=== PATIENT | male | born 1955 | race Caucasian/White ===

== ENCOUNTER 2017-01-01 20:47 | Emergency (ER) | payer MEDICARE, OTHER ==
[2017-01-01] MEDS ORDERED: SODIUM CHLORIDE 0.9% 1,000 ML IV STA (21:12)
[2017-01-01] MEDS ORDERED: SODIUM CHLORIDE 0.9% 1,000 ML with MVI, ADULT NO.4 WITH VIT K 10 ML, THIAMINE 100 MG, F... IV ONE ×4 (21:12)
[2017-01-01] MEDS ORDERED: LORazepam 2 MG/ML SYRINGE IV STA (21:13)
--- NOTE | 2017-01-01 21:17 | ED ---
Alcohol HPI - General Source: RN notes reviewed - History of Present Illness MD Complaint: alcohol intoxication Last Drink: unknown Previous Visits for Alcohol Intoxication?: Yes Recent Trauma: No Associated Symptoms: denies other symptoms Treatments Prior to Arrival: none Chronic Alcohol Use: Yes <Samantha Whittington - Last Filed: 01/02/17 03:07> <Rolf Rasheed - Last Filed: 01/02/17 04:42> - General Stated Complaint: ETOH Time Seen by Provider: 01/01/17 21:03 - History of Present Illness Initial Comments: This young male presents for alcohol intoxication. Patient has no complaints at this time. Patient does have an altered mental status on presentation due to alcohol. (Samantha Whittington) - Related Data Home Medications Medication Instructions Recorded Confirmed Albuterol Sulfate [Ventolin HFA] 2 puff INHALATION RT-Q6H PRN 05/14/16 05/28/16 Famotidine 20 mg PO BID 05/14/16 05/28/16 Haloperidol [Haldol] 5 mg PO TID 05/14/16 05/28/16 Hydrocodone/Acetaminophen [[place] 1 tab PO Q8H PRN 05/14/16 05/28/16 5-325] Lisinopril 40 mg PO DAILY 05/14/16 05/28/16 [place] Carbonate 300 mg PO BID 05/14/16 05/28/16 Paliperidone IM [Invega Sustenna] 234 mg IM Q30D 05/14/16 05/28/16 Tamsulosin [Flomax] 0.4 mg PO DAILY 05/14/16 05/28/16 amLODIPine [Norvasc] 10 mg PO DAILY 05/14/16 05/28/16 Diazepam [Valium] 5 mg PO TID PRN 05/28/16 05/28/16 Disulfiram 250 mg PO DAILY PRN 05/28/16 05/28/16 FLUoxetine HCL [PROzac] 20 mg PO BID 05/28/16 05/28/16 Previous Rx's Medication Instructions Recorded Nicotine 14Mg/24Hr Patch [Habitrol] 1 patch TRANSDERM DAILY #14 patch 05/15/16 Multivitamins, Thera [Multivitamin 1 each PO DAILY@1200 tab 05/30/16 (formulary)] Thiamine [Vitamin B-1] 100 mg PO BID@1200,1700 tab 05/30/16 Allergies Allergy/AdvReac Type Severity Reaction Status Date / Time Penicillins Allergy Severe Rash/Hives Verified 01/01/17 21:18 Review of Systems ROS Other: All systems not noted in ROS Statement are negative. <Samantha Whittington - Last Filed: 01/02/17 03:07> ROS Other: All systems not noted in ROS Statement are negative. <Rolf Rasheed - Last Filed: 01/02/17 04:42> ROS Statement: Those systems with pertinent positive or pertinent negative responses have been documented in the HPI. Past Medical History Past Medical History: Cancer, Hypertension, Liver Disease, Seizure Disorder Additional Past Medical History / Comment(s): opiate overdose and subdural hematoma. Other HX: Etoh addiction, cirrhosis, hepatic encephalopathy, HEAD INJURIES , Hepatitis C, 1-5-15 RIMMA BIMALLEOLAR FX D/T FALL, HAD SKIN CA ON NOSE History of Any Multi-Drug Resistant Organisms: None Reported Past Surgical History: Orthopedic Surgery, Tonsillectomy Additional Past Surgical History / Comment(s): Open left shoulder rotator cuff surgery, SKIN CA NOSE HAD SKIN GRAFT DONE, colonoscopy and EGD. Past Anesthesia/Blood Transfusion Reactions: No Reported Reaction Additional Past Anesthesia/Blood Transfusion Reaction / Comment(s): Pt has never recieved blood. Past Psychological History: ADD/ADHD, Anxiety, Bipolar, Depression Additional Psychological History / Comment(s): Previous suicide attempts with mental health inpatient admissions. Patient is open with [facility] and sees a physician there per pt. Pt is followed by ACT team who dispenses his medication. Pt uses a cane to ambulate. He does not have a license. He currently has a homeless friend staying with him in his renatl home. Smoking Status: Current every day smoker Past Alcohol Use History: Daily Additional Past Alcohol Use History / Comment(s): Pt used to DRINK A PINT OF VODTKA DAILY but quit drinking 9 months ago, and quit smoking cigarettes 6 months ago. He is working out daily and has been eating healthy. Past Drug Use History: None Reported Additional Drug Use History / Comment(s): Pt states he smoked marijuana as a 16 yr old. None since. - Past Family History Mother Family Medical History: Hypertension Father Family Medical History: Musculoskeletal Disorder <Samantha Whittington - Last Filed: 01/02/17 03:07> General Exam General appearance: alert, appears intoxicated Head exam: Present: atraumatic, normocephalic, normal inspection Eye exam: Present: normal appearance, EOMI. Absent: scleral icterus, conjunctival injection ENT exam: Present: normal exam, mucous membranes moist Neck exam: Present: normal inspection. Absent: tenderness, meningismus, lymphadenopathy Respiratory exam: Present: normal lung sounds bilaterally. Absent: respiratory distress, wheezes, rales, rhonchi, stridor Cardiovascular Exam: Present: regular rate, normal rhythm, normal heart sounds. Absent: systolic murmur, diastolic murmur, rubs, gallop, clicks GI/Abdominal exam: Present: soft, normal bowel sounds. Absent: distended, tenderness, guarding, rebound, rigid Neurological exam: Present: alert Skin exam: Present: warm, dry, intact <Samantha Whittington - Last Filed: 01/02/17 03:07> Course <Samantha Whittington - Last Filed: 01/02/17 03:07> <Rolf Rasheed - Last Filed: 01/02/17 04:42> Vital Signs 01/01/17 01/02/17 21:18 00:17 Temperature 96.8 F L 97.4 F L Pulse Rate 95 83 Respiratory 18 18 Rate Blood Pressure 93/56 102/63 O2 Sat by Pulse 95 96 Oximetry - Reevaluation(s) Reevaluation #1: 01/02/17 01:56 Patient laboratory is reviewed and patient was reassessed was sleeping in the room at this time. (Samantha Whittington) Reevaluation #2: 01/02/17 03:07 This case will be signed out to Dr. Rasheed. (Samantha Whittington) Medical Decision Making - Lab Data Result diagrams: 01/01/17 21:33 01/01/17 21:33 <Samantha Whittington - Last Filed: 01/02/17 03:07> - Lab Data Result diagrams: 01/01/17 21:33 01/01/17 21:33 <Rolf Rasheed - Last Filed: 01/02/17 04:42> - Medical Decision Making 61-year-old male presents to emergency room chief complaint of what appears to be alcohol intoxication. (Samantha Whittington) Patient reevaluated and resting comfortably in bed without other complaints. Patient requesting discharge. Patient is acting appropriately. Alert and oriented 3 steady gait. (Rolf Rasheed) - Lab Data Lab Results 01/01/17 01/01/17 Range/Units 21:33 21:33 WBC 9.1 (3.8-10.6) k/uL RBC 4.75 (4.30-5.90) m/uL Hgb 13.7 (13.0-17.5) gm/dL Hct 41.8 (39.0-53.0) % MCV 88.0 (80.0-100.0) fL MCH 28.8 (25.0-35.0) pg MCHC 32.8 (31.0-37.0) g/dL RDW 13.9 (11.5-15.5) % Plt Count 176 (150-450) k/uL Neutrophils % 72 % Lymphocytes % 21 % Monocytes % 4 % Eosinophils % 1 % Basophils % 0 % Neutrophils # 6.5 (1.3-7.7) k/uL Lymphocytes # 1.9 (1.0-4.8) k/uL Monocytes # 0.3 (0-1.0) k/uL Eosinophils # 0.1 (0-0.7) k/uL Basophils # 0.0 (0-0.2) k/uL Sodium 140 (137-145) mmol/L Potassium 3.7 (3.5-5.1) mmol/L Chloride 103 (98-107) mmol/L Carbon Dioxide 19 L (22-30) mmol/L Anion Gap 18 mmol/L BUN 16 (9-20) mg/dL Creatinine 0.83 (0.66-1.25) mg/dL Est GFR (MDRD) Af Amer >60 (>60 ml/min/1.73 sqM) Est GFR (MDRD) Non-Af >60 (>60 ml/min/1.73 sqM) Glucose 135 H (74-99) mg/dL Calcium 9.0 (8.4-10.2) mg/dL Phosphorus 4.4 (2.5-4.5) mg/dL Magnesium 1.9 (1.6-2.3) mg/dL Total Bilirubin 0.7 (0.2-1.3) mg/dL AST 107 H (17-59) U/L ALT 100 H (21-72) U/L Alkaline Phosphatase 64 (38-126) U/L Total Protein 8.0 (6.3-8.2) g/dL Albumin 4.3 (3.5-5.0) g/dL Serum Alcohol 300 mg/dL Disposition <Samantha Whittington - Last Filed: 01/02/17 03:07> <Rolf Rasheed - Last Filed: 01/02/17 04:42> Clinical Impression: Alcoholic intoxication Disposition: HOME SELF-CARE Condition: Stable Instructions: Alcohol Intoxication (ED) Additional Instructions: Discontinue alcohol use. Return for worsening symptoms or other concerns. Referrals: None,Stated [Primary Care Provider] - 1-2 days Lili Rodriguez MD [STAFF PHYSICIAN] - 1-2 days
[2017-01-01 22:09] LABS: ALT 100 U/L (21-72); AST 107 U/L (17-59); Alkaline Phosphatase 64 U/L (38-126); Anion Gap 18 mmol/L; Blood Urea Nitrogen 16 mg/dL (9-20); Carbon Dioxide 19 mmol/L (22-30); Chloride 103 mmol/L (98-107); Glucose 135 mg/dL (74-99); Magnesium 1.9 mg/dL (1.6-2.3); Non-African American GFR(MDRD) >60 (>60 ml/min/1.73 sqM); Phosphorous 4.4 mg/dL (2.5-4.5); Potassium 3.7 mmol/L (3.5-5.1); Sodium 140 mmol/L (137-145); Total Bilirubin 0.7 mg/dL (0.2-1.3)
[2017-01-01 22:20] LABS: Basophils % (A) 0 %; CH 29.2; CHCM 33.3; Eosinophils # (A) 0.1 k/uL (0-0.7); Eosinophils % (A) 1 %; HCT 41.8 % (39.0-53.0); HDW 2.86; HGB 13.7 gm/dL (13.0-17.5); Luc # (Auto) 0.16; Luc % (Auto) 2; Lymphocytes # (A) 1.9 k/uL (1.0-4.8); Lymphocytes % (A) 21 %; MCH 28.8 pg (25.0-35.0); MCHC 32.8 g/dL (31.0-37.0); Mean Platelet Volume 7.3; Monocytes # (A) 0.3 k/uL (0-1.0); Monocytes % (A) 4 %; Neutrophils # (A) 6.5 k/uL (1.3-7.7); Neutrophils % (A) 72 %; RBC 4.75 m/uL (4.30-5.90); RDW 13.9 % (11.5-15.5); WBC 9.1 k/uL (3.8-10.6)
[2017-01-01 22:23] LABS: Alcohol 300 mg/dL
[2017-01-02 00:18] VITALS: TEMP 97.4
[2017-01-02 04:43] VITALS: BP 144/75; PULSE 86; RESP 16
[2017-01-02] MEDS ORDERED: FAMOTIDINE 20 MG/2 ML VIAL IV STA (04:44)
== END 2017-01-02 04:58 | disposition home or self-care (01) ==
LOC: EC 20:47
DX: F10.129 Alcohol abuse with intoxication, unspecified (principal); I10 Essential (primary) hypertension; F31.9 Bipolar disorder, unspecified; F41.9 Anxiety disorder, unspecified; Z87.891 Personal history of nicotine dependence; Z79.899 Other long term (current) drug therapy; Z88.0 Allergy status to penicillin
CPT/HCPCS: 82075; 36415; 80053; 83735; 84100; 85025; 80320; 99284; 96365; 96366 ×6; 96375 ×2; J2060; J3411

== ENCOUNTER → 2017-01-11 | Outpatient (CLI) | payer MEDICARE, OTHER | LOC: RADMRIMAIN 13:06 ==

== ENCOUNTER → 2017-04-11 | Outpatient (CLI) | payer MEDICARE, OTHER ==
[2017-04-11 16:09] LABS: Basophils % (A) 1 %; CH 29.7; CHCM 34.6; Eosinophils # (A) 0.1 k/uL (0-0.7); Eosinophils % (A) 3 %; HCT 39.7 % (39.0-53.0); HDW 2.49; HGB 14.1 gm/dL (13.0-17.5); Luc # (Auto) 0.09; Luc % (Auto) 2; Lymphocytes % (A) 22 %; MCH 30.7 pg (25.0-35.0); MCHC 35.6 g/dL (31.0-37.0); MCV 86.4 fL (80.0-100.0); Mean Platelet Volume 7.1; Monocytes # (A) 0.3 k/uL (0-1.0); Monocytes % (A) 6 %; Neutrophils # (A) 3.2 k/uL (1.3-7.7); Neutrophils % (A) 68 %; RDW 14.6 % (11.5-15.5); WBC 4.8 k/uL (3.8-10.6); WBC (Perox) 4.72
[2017-04-11 16:16] LABS: ALT 91 U/L (21-72); AST 79 U/L (17-59); Alkaline Phosphatase 89 U/L (38-126); Anion Gap 13 mmol/L; Blood Urea Nitrogen 13 mg/dL (9-20); Calcium 9.2 mg/dL (8.4-10.2); Carbon Dioxide 23 mmol/L (22-30); Chloride 103 mmol/L (98-107); Glucose 110 mg/dL (74-99); Non-African American GFR(MDRD) >60 (>60 ml/min/1.73 sqM); Potassium 4.2 mmol/L (3.5-5.1); Sodium 139 mmol/L (137-145); Total Bilirubin 0.7 mg/dL (0.2-1.3); Total Protein 7.8 g/dL (6.3-8.2)
[2017-04-12 16:18] LABS: LOG HCV IU/mL 5.66 (<1.08)
== END | disposition home or self-care (01) ==
LOC: LABWHC1 15:16
DX: B18.2 Chronic viral hepatitis C (principal)
CPT/HCPCS: 36415; 80053; 85025; 87522

== ENCOUNTER → 2017-05-11 | Outpatient (CLI) | payer MEDICARE, OTHER ==
--- NOTE | 2017-05-11 15:17 | CT ---
EXAMINATION TYPE: CT abdomen w con DATE OF EXAM: 05/11/2017 COMPARISON: NONE HISTORY: 61-year-old male hepatocellular Carcinoma TECHNIQUE: Contiguous axial scanning of the abdomen following administration of 100 ml Omnipaque 300 IV contrast. Delayed images through the kidneys and coronal/sagittal reconstructions performed. CT DLP: 1170 mGycm Automated exposure control for dose reduction was used. FINDINGS: The heart is normal size with trace anterior basilar pericardial fluid. Prominent 5 mm anterior parac ardiac lymph node is noted. Dense mitral annular calcifications. Some patchy atelectasis in the basil ar right middle lobe. No pleural effusion. Note that this study is performed as a routine postcontrast CT of the abdomen. This was not performed as a dual phase liver scan. There is heterogeneous enhancement at the junction of the right and left hepatic lobes. The heterogen eous enhancement measures approximately 3.5 cm. However, on the delayed kidney images, the rounded ar ea of washout becomes evident measuring up to 5.9 cm. On the delayed kidney images, there is a vague 9 mm area of hypodensity in the left segment 2 liver lobe, axial image 15 series 7 without clear tito elate on the initial contrast phase. Subcentimeter cyst in segment IVb left left liver lobe. The main portal vein is patent. The gallbladder is collapsed. Adrenal glands and kidneys appear within normal limits. Spleen is enlarged measuring 15.9 cm craniocaudal, coronal image 79. There is a 1.4 cm cystic lesion in the pancreatic head. Soft tissue nodularity within the left mid abdominal anterior subcutaneous fat may relate to injectio ns. No dilated small bowel, free fluid, or free air. Scattered mild overall stool burden without pericolonic inflammatory change. Normal appendix. Scattered prominent retroperitoneal lymph nodes measure up to 8 mm. No lymph nodes greater than 1 cm are identified. Bones: Subacute healing rib fractures right posterolateral 11th, and right lateral 10th ribs. IMPRESSION: 1. HETEROGENEOUSLY ENHANCING 5.9 CM MASS AT THE JUNCTION OF THE RIGHT AND LEFT HEPATIC LOBES. THE MAS S SHOWS WASHOUT ON THE DELAYED KIDNEY IMAGES AND LIKELY CORRESPONDS TO THE PATIENT'S HCC. 2. INDETERMINATE VAGUE 9 MM HYPODENSE LESION WITHIN SEGMENT 2 OF THE LEFT LIVER LOBE. THIS SHOULD BE REASSESSED AT FOLLOW-UP. 3. SPLENOMEGALY (15.9 CM) MAY REFLECT UNDERLYING VENOUS HYPERTENSION. 4. A 1.4 CM CYSTIC LESION IN THE PANCREATIC HEAD. ON SUBSEQUENT FOLLOW-UP, CONSIDER MRI TO FURTHER CH ARACTERIZE. 5. SUBACUTE HEALING FRACTURES INVOLVING THE RIGHT 10TH AND 11TH RIBS.
== END | disposition home or self-care (01) ==
LOC: RADCTMAIN 12:30
PROVIDERS: ATTEND Internal Medicine Hepatology
DX: C22.0 Liver cell carcinoma (principal); R16.2 Hepatomegaly with splenomegaly, not elsewhere classified; K86.2 Cyst of pancreas
CPT/HCPCS: 74160; Q9967

== ENCOUNTER 2018-01-02 16:49 | Inpatient (IN) | payer MEDICARE, MEDICAID ==
--- NOTE | 2018-01-02 17:58 | ED ---
Psych HPI - General Chief Complaint: Psychiatric Symptoms Stated Complaint: Mental health Time Seen by Provider: 01/02/18 17:00 Source: patient, RN notes reviewed Mode of arrival: ambulatory - History of Present Illness Initial Comments: This is a 62-year-old male who presents to the emergency department for mental health evaluation. Patient states that he was recently diagnosed with liver cancer. I did also speak with [facility] worker who states that patient has been struggling with this diagnosis. He was told that with treatment he has 1-3 years to live. He sees oncologists and pain management at [facility] in [place]. [facility] worker states that patient does have bipolar and has been sober from alcohol since last summer. Patient states "I don't want to live no more, I want to ." He states that he has no control over his future health and just wants to by his own means. Patient states that he has been feeling paranoid. He denies any visual or auditory hallucinations. Denies any homicidal ideation. He does state that he wants to take all of his pills or "drink himself to ." Patient states that today he has had 4 beers and 1 pint of liquor. He has no other complaints. Denies fevers or chills, chest pain or shortness of breath, nausea or vomiting, diarrhea or constipation, dysuria or hematuria. Patient does state that he has "liver pain." This is not out of the ordinary for him. - Related Data Home Medications Medication Instructions Recorded Confirmed Lisinopril 40 mg PO DAILY 05/14/16 01/02/18 Paliperidone IM [Invega Sustenna] 234 mg IM Q30D 05/14/16 01/02/18 Tamsulosin [Flomax] 0.4 mg PO DAILY 05/14/16 01/02/18 amLODIPine [Norvasc] 10 mg PO DAILY 05/14/16 01/02/18 Benztropine Mesylate [Cogentin] 2 mg PO DAILY 01/02/18 01/02/18 Cholecalciferol (Vitamin D3) 10,000 unit PO DAILY 01/02/18 01/02/18 [Vitamin D3] Clotrimazole [Clotrimazole AF] 1 applic TOPICAL DAILY 01/02/18 01/02/18 Folic Acid 2 mg PO DAILY 01/02/18 01/02/18 Gabapentin [Neurontin] 200 mg PO TID 01/02/18 01/02/18 Lactulose 30 gm PO DAILY 01/02/18 01/02/18 Magnesium Oxide 400 mg PO DAILY 01/02/18 01/02/18 Methocarbamol [Robaxin] 500 mg PO Q8HR PRN 01/02/18 01/02/18 Multivitamins, Thera [Multivitamin 1 tab PO DAILY 01/02/18 01/02/18 (formulary)] Omeprazole 20 mg PO DAILY 01/02/18 01/02/18 Ondansetron HCl [Zofran] 4 mg PO Q8HR PRN 01/02/18 01/02/18 fluvoxaMINE MALEATE [Fluvoxamine 200 mg PO DAILY 01/02/18 01/02/18 Maleate] traMADol HCL [Ultram] 50 mg PO Q6HR PRN 01/02/18 01/02/18 traZODone HCL [Desyrel] 100 mg PO HS 01/02/18 01/02/18 Allergies Allergy/AdvReac Type Severity Reaction Status Date / Time Penicillins Allergy Severe Rash/Hives Verified 01/02/18 17:34 Review of Systems ROS Statement: Those systems with pertinent positive or pertinent negative responses have been documented in the HPI. ROS Other: All systems not noted in ROS Statement are negative. Past Medical History Past Medical History: Cancer, Hypertension, Liver Disease, Seizure Disorder Additional Past Medical History / Comment(s): opiate overdose and subdural hematoma. Other HX: Etoh addiction, cirrhosis, hepatic encephalopathy, HEAD INJURIES , Hepatitis C, 1-5-15 RIMMA BIMALLEOLAR FX D/T FALL, HAD SKIN CA ON NOSE, liver CA History of Any Multi-Drug Resistant Organisms: None Reported Past Surgical History: Orthopedic Surgery, Tonsillectomy Additional Past Surgical History / Comment(s): Open left shoulder rotator cuff surgery, SKIN CA NOSE HAD SKIN GRAFT DONE, colonoscopy and EGD. Past Anesthesia/Blood Transfusion Reactions: No Reported Reaction Additional Past Anesthesia/Blood Transfusion Reaction / Comment(s): Pt has never recieved blood. Past Psychological History: ADD/ADHD, Anxiety, Bipolar, Depression Smoking Status: Current every day smoker Past Alcohol Use History: Daily Past Drug Use History: None Reported - Past Family History Mother Family Medical History: Hypertension Father Family Medical History: Musculoskeletal Disorder General Exam - General Exam Comments Initial Comments: General: Awake and alert, well-developed; in no apparent distress. HEENT: Head atraumatic, normocephalic. Pupils are equal, round and reactive to light. Extraocular movements intact. Oropharynx moist without erythema or exudate. Neck: Supple. Normal ROM. Cardiovascular: Regular rate and rhythm. No murmurs, rubs or gallops. Chest symmetrical. Respiratory: Lungs clear to auscultation bilaterally. No wheezes, rales or rhonchi. Normal respiratory effort with no use of accessory muscles. Abdomen: Soft, non-tender, non-distended. No rigidity, rebound or guarding. Normal bowel sounds in all 4 quadrants. Musculoskeletal: Normal ROM, no tenderness bilateral upper and lower extremities. Ambulating normally. Skin: [place], warm and dry without rashes or lesions. Neurological: Alert and oriented x3. CN II-XII grossly intact. Answers are appropriate. No focal neuro deficits. Limitations: no limitations Course Vital Signs 01/02/18 01/02/18 16:56 21:24 Temperature 97.0 F L 98.1 F Pulse Rate 100 94 Respiratory 18 18 Rate Blood Pressure 128/87 110/63 O2 Sat by Pulse 98 97 Oximetry Medical Decision Making - Medical Decision Making This is a 62-year-old male who presents to the emergency department for mental health evaluation. Patient's drug screen was negative. He was evaluated by EPS nurse with recommendation to be admitted to the psychiatric floor. Patient' s vital signs are stable and he is in no acute distress. He will be admitted. - Lab Data Lab Results 01/02/18 Range/Units 17:44 Urine Opiates Screen Not Detected (NotDetected) Ur Oxycodone Screen Not Detected (NotDetected) Urine Methadone Screen Not Detected (NotDetected) Ur Propoxyphene Screen Not Detected (NotDetected) Ur Barbiturates Screen Not Detected (NotDetected) U Tricyclic Antidepress Not Detected (NotDetected) Ur Phencyclidine Scrn Not Detected (NotDetected) Ur Amphetamines Screen Not Detected (NotDetected) U Methamphetamines Scrn Not Detected (NotDetected) U Benzodiazepines Scrn Not Detected (NotDetected) Urine Cocaine Screen Not Detected (NotDetected) U Marijuana (THC) Screen Not Detected (NotDetected) Disposition Clinical Impression: Suicidal ideation, Alcohol abuse, Situational depression Disposition: ADMITTED IP TO THIS [facility] Condition: Stable Referrals: None,Stated [Primary Care Provider] - 1-2 days Time of Disposition: 22:40
[2018-01-02 18:06] LABS: Amphetamine Screen,Urine Not Detected (NotDetected); Barbiturate Screen,Urine Not Detected (NotDetected); Benzodiazepines Screen,Urine Not Detected (NotDetected); Cocaine Screen,Urine Not Detected (NotDetected); Methadone Screen, Urine Not Detected (NotDetected); Opiate Screen,Urine Not Detected (NotDetected); Oxycodone Screen, Urine Not Detected (NotDetected); Phencyclidine Screen,Urine Not Detected (NotDetected); Tricyclic Antidepressant,Urine Not Detected (NotDetected); Urn Cannabinoid Scrn Not Detected (NotDetected)
[2018-01-02] MEDS ORDERED: MAG HYDROX/AL HYDROX/SIMETH 30 ML CUP PO PRN (23:04)
[2018-01-02] MEDS ORDERED: LORazepam 1 MG TAB PO PRN (23:04)
[2018-01-02] MEDS ORDERED: MAGNESIUM HYDROXIDE 2,400 MG/10 ML CUP PO PRN (23:04)
[2018-01-02] MEDS ORDERED: METHOCARBAMOL 500 MG TAB PO PRN (23:10)
[2018-01-02] MEDS ORDERED: ONDANSETRON 4 MG TAB PO PRN (23:10)
--- NOTE | 2018-01-03 06:55 | P.CONS ---
History of Present Illness - Reason for Consult Consult date: 01/03/18 Medical management - Chief Complaint Generalized pain - History of Present Illness Patient admitted to the hospital for suicidal ideation patient states he has been very depressed and not feeling well and has generalized pain but is not complaining of active chest pain or shortness of breath at this time review of systems and systems has been reviewed all negative and positive findings as per HPI Past Medical History: Cancer, Hypertension, Liver Disease, Seizure Disorder Additional Past Medical History / Comment(s): opiate overdose and subdural hematoma. Other HX: Etoh addiction, cirrhosis, hepatic encephalopathy, HEAD INJURIES , Hepatitis C, 1-5-15 RIMMA BIMALLEOLAR FX D/T FALL, HAD SKIN CA ON NOSE, liver CA History of Any Multi-Drug Resistant Organisms: None Reported Past Surgical History: Orthopedic Surgery, Tonsillectomy Additional Past Surgical History / Comment(s): Open left shoulder rotator cuff surgery, SKIN CA NOSE HAD SKIN GRAFT DONE, colonoscopy and EGD. Past Anesthesia/Blood Transfusion Reactions: No Reported Reaction Additional Past Anesthesia/Blood Transfusion Reaction / Comment(s): Pt has never recieved blood. Past Psychological History: ADD/ADHD, Anxiety, Bipolar, Depression Smoking Status: Current every day smoker Past Alcohol Use History: Daily Past Drug Use History: None Reported - Past Family History Mother Family Medical History: Hypertension Father Family Medical History: Musculoskeletal Disorder Constitutional: No acute distress, conversant, pleasant Eyes: Anicteric sclerae, moist conjunctiva, Vital Signs - 24 hr 01/02/18 01/02/18 01/02/18 16:56 21:24 23:05 Temperature 97.0 F L 98.1 F 97.0 F L Pulse Rate 100 94 91 Pulse Rate [ Left Supine] Pulse Rate [ Right Sitting Brachial] Respiratory 18 18 18 Rate Blood Pressure 128/87 110/63 115/69 Blood Pressure [Left Arm Supine] Blood Pressure [Right Arm Sitting] O2 Sat by Pulse 98 97 97 Oximetry 01/02/18 01/03/18 23:26 06:31 Temperature 97.1 F L 98.3 F Pulse Rate Pulse Rate [ 73 Left Supine] Pulse Rate [ 98 Right Sitting Brachial] Respiratory 16 16 Rate Blood Pressure Blood Pressure 115/68 [Left Arm Supine] Blood Pressure 139/70 [Right Arm Sitting] O2 Sat by Pulse 100 Oximetry Laboratory Results - last 24 hr 01/02/18 17:44 Urine Opiates Screen Not Detected Ur Oxycodone Screen Not Detected Urine Methadone Screen Not Detected Ur Propoxyphene Screen Not Detected Ur Barbiturates Screen Not Detected U Tricyclic Antidepress Not Detected Ur Phencyclidine Scrn Not Detected Ur Amphetamines Screen Not Detected U Methamphetamines Scrn Not Detected U Benzodiazepines Scrn Not Detected Urine Cocaine Screen Not Detected U Marijuana (THC) Screen Not Detected ENMT: NC/AT Oropharynx clear, no erythema, exudates Neck: Supple, FROM, no masses, or JVD No carotid bruits No thyromegaly Lungs: Clear to auscultation Clear to percussion Normal respiratory effort, no accessory muscle use Cardiovascular: Heart regular in rate and rhythm, No murmurs, gallops, or rubs No peripheral edema Abdominal: Soft Nontender, no guarding, rebound or rigidity Abdomen moving with respiration Normoactive bowel sounds No hepatomegaly, No splenomegaly No palpable mass No abdominal wall hernia noted Skin: Normal temperature, tone, texture, turgor No induration No subcutaneous nodules No rash, lesions No ulcers Extremities: No digital cyanosis No clubbing Pedal pulses intact and symmetrical Radial pulses intact and symmetrical Normal gait and station No calf tenderness Psychiatric:Alert and oriented to person, place and time Appropriate affect Intact judgement Neuro: Generalized weakness Assessment and plan depression and suicidal ideation management as per primary team Liver cancer Hypertension resume home medication Generalized pain Anxiety Overall medically stable in management as the primary team Past Medical History Past Medical History: Cancer, Hypertension, Liver Disease, Seizure Disorder Additional Past Medical History / Comment(s): opiate overdose and subdural hematoma. Other HX: Etoh addiction, cirrhosis, hepatic encephalopathy, HEAD INJURIES , Hepatitis C, 1-5-15 RIMMA BIMALLEOLAR FX D/T FALL, HAD SKIN CA ON NOSE, liver CA History of Any Multi-Drug Resistant Organisms: None Reported Past Surgical History: Orthopedic Surgery, Tonsillectomy Additional Past Surgical History / Comment(s): Open left shoulder rotator cuff surgery, SKIN CA NOSE HAD SKIN GRAFT DONE, colonoscopy and EGD. Past Anesthesia/Blood Transfusion Reactions: No Reported Reaction Additional Past Anesthesia/Blood Transfusion Reaction / Comm: Pt has never recieved blood. Past Psychological History: ADD/ADHD, Anxiety, Bipolar, Depression Smoking Status: Current every day smoker Past Alcohol Use History: Daily Past Drug Use History: None Reported - Past Family History Mother Family Medical History: Hypertension Father Family Medical History: Musculoskeletal Disorder Medications and Allergies Home Medications Medication Instructions Recorded Confirmed Type Lisinopril 40 mg PO DAILY 05/14/16 01/02/18 History Paliperidone IM [Invega Sustenna] 234 mg IM Q30D 05/14/16 01/02/18 History Tamsulosin [Flomax] 0.4 mg PO DAILY 05/14/16 01/02/18 History amLODIPine [Norvasc] 10 mg PO DAILY 05/14/16 01/02/18 History Benztropine Mesylate [Cogentin] 2 mg PO DAILY 01/02/18 01/02/18 History Cholecalciferol (Vitamin D3) 10,000 unit PO DAILY 01/02/18 01/02/18 History [Vitamin D3] Clotrimazole [Clotrimazole AF] 1 applic TOPICAL DAILY 01/02/18 01/02/18 History Folic Acid 2 mg PO DAILY 01/02/18 01/02/18 History Gabapentin [Neurontin] 200 mg PO TID 01/02/18 01/02/18 History Lactulose 30 gm PO DAILY 01/02/18 01/02/18 History Magnesium Oxide 400 mg PO DAILY 01/02/18 01/02/18 History Methocarbamol [Robaxin] 500 mg PO Q8HR PRN 01/02/18 01/02/18 History Multivitamins, Thera [Multivitamin 1 tab PO DAILY 01/02/18 01/02/18 History (formulary)] Omeprazole 20 mg PO DAILY 01/02/18 01/02/18 History Ondansetron HCl [Zofran] 4 mg PO Q8HR PRN 01/02/18 01/02/18 History fluvoxaMINE MALEATE [Fluvoxamine 200 mg PO DAILY 01/02/18 01/02/18 History Maleate] traMADol HCL [Ultram] 50 mg PO Q6HR PRN 01/02/18 01/02/18 History traZODone HCL [Desyrel] 100 mg PO HS 01/02/18 01/02/18 History Allergies Allergy/AdvReac Type Severity Reaction Status Date / Time Penicillins Allergy Severe Rash/Hives Verified 01/02/18 17:34 Physical Exam Vitals: Vital Signs Temp Pulse Pulse Pulse Resp BP BP 01/03/18 06:31 98.3 F 73 16 115/68 01/02/18 23:26 97.1 F L 98 16 01/02/18 23:05 97.0 F L 91 18 115/69 01/02/18 21:24 98.1 F 94 18 110/63 01/02/18 16:56 97.0 F L 100 18 128/87 BP Pulse Ox 01/03/18 06:31 01/02/18 23:26 139/70 100 01/02/18 23:05 97 01/02/18 21:24 97 01/02/18 16:56 98 Intake and Output 01/02/18 01/02/18 01/03/18 14:59 22:59 06:59 Other: Weight 93.894 kg 90.265 kg
[2018-01-03] MEDS: LACTULOSE 20 GM/30 ML CUP PO SCH (08:20)
[2018-01-03] MEDS: PANTOPRAZOLE 40 MG TABLET PO SCH (08:22)
[2018-01-03] MEDS: LISINOPRIL 20 MG TAB PO SCH (08:22)
[2018-01-03] MEDS: BENZTROPINE MESYLATE 1 MG TAB PO SCH (08:22)
[2018-01-03] MEDS: TAMSULOSIN 0.4 MG CAP.ER.24H PO SCH (08:22)
[2018-01-03 08:23] LABS: Basophils % (A) 0 %; Eosinophils # (A) 0.1 k/uL (0-0.7); Eosinophils % (A) 3 %; HCT 41.4 % (39.0-53.0); HGB 13.9 gm/dL (13.0-17.5); Lymphocytes # (A) 0.2 k/uL (1.0-4.8); Lymphocytes % (A) 7 %; MCH 28.3 pg (25.0-35.0); MCHC 33.5 g/dL (31.0-37.0); MCV 84.4 fL (80.0-100.0); Mean Platelet Volume 7.3; Monocytes # (A) 0.2 k/uL (0-1.0); Monocytes % (A) 6 %; Neutrophils # (A) 2.7 k/uL (1.3-7.7); Neutrophils % (A) 81 %; Platelet Count 111 k/uL (150-450); RDW 14.3 % (11.5-15.5); WBC 3.3 k/uL (3.8-10.6)
[2018-01-03] MEDS: amLODIPine 10 MG TAB PO SCH (08:23)
[2018-01-03] MEDS: GABAPENTIN 100 MG CAP PO SCH ×3 (08:23→19:53)
[2018-01-03] MEDS: MULTIVITAMINS, THERA 1 EACH TAB PO SCH (08:23)
[2018-01-03] MEDS: CHOLECALCIFEROL 1,000 UNIT TAB PO SCH ×2 (08:23→19:53)
[2018-01-03] MEDS: FOLIC ACID 1 MG TAB PO SCH (08:23)
[2018-01-03] MEDS: MAGNESIUM OXIDE 400 MG TAB PO SCH (08:23)
[2018-01-03 08:31] LABS: ALT 107 U/L (21-72); AST 93 U/L (17-59); Albumin 3.8 g/dL (3.5-5.0); Alkaline Phosphatase 116 U/L (38-126); Anion Gap 10 mmol/L; Bilirubin, Delta 0.4 mg/dL (0.0-0.2); Blood Urea Nitrogen 13 mg/dL (9-20); Calcium 9.2 mg/dL (8.4-10.2); Carbon Dioxide 28 mmol/L (22-30); Chloride 107 mmol/L (98-107); Cholesterol 110 mg/dL (<200); Glucose 112 mg/dL (74-99); HDL Cholesterol 38 mg/dL (40-60); LDL Cholesterol,Calculated 61 mg/dL (0-99); Potassium 4.7 mmol/L (3.5-5.1); Sodium 145 mmol/L (137-145); Total Bilirubin 0.4 mg/dL (0.2-1.3); Total Protein 7.4 g/dL (6.3-8.2); Triglycerides 56 mg/dL (<150)
[2018-01-03] MEDS: NICOTINE 21MG/24HR PATCH TRANSDERM SCH (08:57)
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
[2018-01-03 18:27] LABS: Hemoglobin A1C 5.8 % (4.0-6.0)
[2018-01-03] MEDS ORDERED: traZODone HCL 100 MG TAB PO SCH (21:00)
[2018-01-04 06:35] VITALS: TEMP 97.8
[2018-01-04] MEDS: TAMSULOSIN 0.4 MG CAP.ER.24H PO SCH (09:12)
[2018-01-04] MEDS: amLODIPine 10 MG TAB PO SCH (09:12)
[2018-01-04] MEDS: MAGNESIUM OXIDE 400 MG TAB PO SCH (09:12)
[2018-01-04] MEDS: CHOLECALCIFEROL 1,000 UNIT TAB PO SCH (09:16)
[2018-01-04] MEDS: BENZTROPINE MESYLATE 1 MG TAB PO SCH (09:16)
[2018-01-04] MEDS: PANTOPRAZOLE 40 MG TABLET PO SCH (09:16)
[2018-01-04] MEDS: NICOTINE 21MG/24HR PATCH TRANSDERM SCH (09:16)
[2018-01-04] MEDS: GABAPENTIN 100 MG CAP PO SCH (09:17)
[2018-01-04] MEDS: LACTULOSE 20 GM/30 ML CUP PO SCH (09:17)
[2018-01-04] MEDS: FOLIC ACID 1 MG TAB PO SCH (09:17)
[2018-01-04] MEDS: LISINOPRIL 20 MG TAB PO SCH (09:17)
[2018-01-04] MEDS: MULTIVITAMINS, THERA 1 EACH TAB PO SCH (09:18)
[2018-01-04 09:28] VITALS: BP 120/68; PULSE 105; RESP 20
--- NOTE | 2018-01-04 10:13 | P.DS ---
Providers Date of admission: 01/02/18 22:58 Expected date of discharge: 01/04/18 Attending physician: Nilam Holman Consults: 01/02/18 23:04 Consult Physician Routine Consulting Provider: Jolene V[facility] Consult Reason/Comments: H&P for mental health admission Do you want consulting provider notified?: Yes Primary care physician: Stated None Hospital Course: Patient had his psychiatric evaluation, physical examination and psychosocial evaluation. He was continued on his home medications. He received milieu therapy group therapy individual therapy occupational therapy recreational therapy and medication education. He continued to deny suicidal and homicidal ideas he did not show any behavior suggestive of self abuse, self-destruction violence and has been able to care for basic needs. He has an appointment to see his lecturer of portuguese/oncologist regarding radiation treatment on 01/08/2018. Since it was felt he did not need to be in psychiatric unit any further it was agreed to discharge him. Condition on discharge: This is a white ambulatory male with good hygiene. He is polite friendly cheerful and cooperative. He does not show any psychomotor agitation or retardation. His speech is spontaneous relevant and goal- directed. His mood is cheerful and affect is appropriate. He denies suicidal and homicidal ideas. He denies hallucinations and delusional thinking. His insight and judgment are adequate. He is well oriented with good memory concentration general knowledge etc. Diagnosis on discharge: Unspecified bipolar and related disorder per records F 31.9. Alcohol use disorder in the past severe F 10.20 Antisocial personality disorder F 60.2. ALLERGY to penicillins. Recent diagnosis of carcinoma of liver. Patient was advised and agreed to take his medications as prescribed, to discuss the need for using Cogentin and Luvox while on Invega Sustenna with the diagnosis of bipolar disorder, not to drink alcohol or use drugs, to learn better coping skills through therapy, not to drive or operate missionary if he feels sleepy, to discuss with his psychiatrist/therapist if he gets any suicidal thoughts and if he cannot get hold of them to go to nearest ER, to continue follow-up treatment with his lecturer of portuguese/oncologist regarding recent diagnosis of carcinoma of the liver. Patient Condition at Discharge: Stable Plan - Discharge Summary Discharge Rx Participant: No New Discharge Prescriptions: Continue Paliperidone IM [Invega Sustenna] 234 mg IM Q30D Tamsulosin [Flomax] 0.4 mg PO DAILY Lisinopril 40 mg PO DAILY amLODIPine [Norvasc] 10 mg PO DAILY Cholecalciferol (Vitamin D3) [Vitamin D3] 10,000 unit PO DAILY traMADol HCL [Ultram] 50 mg PO Q6HR PRN PRN Reason: Pain Lactulose 30 gm PO DAILY Gabapentin [Neurontin] 200 mg PO TID Folic Acid 2 mg PO DAILY Multivitamins, Thera [Multivitamin (formulary)] 1 tab PO DAILY Clotrimazole [Clotrimazole AF] 1 applic TOPICAL DAILY Discontinued Ondansetron HCl [Zofran] 4 mg PO Q8HR PRN PRN Reason: Nausea Methocarbamol [Robaxin] 500 mg PO Q8HR PRN PRN Reason: Muscle Spasm traZODone HCL [Desyrel] 100 mg PO HS Omeprazole 20 mg PO DAILY Magnesium Oxide 400 mg PO DAILY fluvoxaMINE MALEATE [Fluvoxamine Maleate] 200 mg PO DAILY Benztropine Mesylate [Cogentin] 2 mg PO DAILY Discharge Medication List Lisinopril 40 mg PO DAILY 05/14/16 [History] Paliperidone IM [Invega Sustenna] 234 mg IM Q30D 05/14/16 [History] Tamsulosin [Flomax] 0.4 mg PO DAILY 05/14/16 [History] amLODIPine [Norvasc] 10 mg PO DAILY 05/14/16 [History] Cholecalciferol (Vitamin D3) [Vitamin D3] 10,000 unit PO DAILY 01/02/18 [History ] Clotrimazole [Clotrimazole AF] 1 applic TOPICAL DAILY 01/02/18 [History] Folic Acid 2 mg PO DAILY 01/02/18 [History] Gabapentin [Neurontin] 200 mg PO TID 01/02/18 [History] Lactulose 30 gm PO DAILY 01/02/18 [History] Multivitamins, Thera [Multivitamin (formulary)] 1 tab PO DAILY 01/02/18 [History ] traMADol HCL [Ultram] 50 mg PO Q6HR PRN 01/02/18 [History] Follow up Appointment(s)/Referral(s): [facility] [Outside] - 01/04/18 1:00 pm (01/04/18 @ 1PM with ACT team 01/09/[address] Acosta @ 10:40 AM.) None,Stated [Primary Care Provider] - 1-2 days Patient Instructions/Handouts: Abuse of Alcohol (DC) Activity/Diet/Wound Care/Special Instructions: Activity and Diet as tolerated. Avoid the use of street drugs and alcohol. Take all medications as prescribed, when you are in need of refills contact your medical doctor or psychiatrist. Please go to all scheduled outpatient appointments for aftercare treatment. If symptoms return or worsen you can call the crisis line @ and/or return to the nearest emergency room for evaluation.
== END 2018-01-04 12:08 | disposition home or self-care (01) | DRG 885 ==
LOC: EC 16:49 → 3MHU 22:58
PROVIDERS: ADMIT Psychiatry & Neurology Psychiatry; ATTEND Psychiatry & Neurology Psychiatry
DX: F31.9 Bipolar disorder, unspecified (principal); C22.8 Malignant neoplasm of liver, primary, unspecified as to type; G40.909 Epilepsy, unspecified, not intractable, without status epilepticus; R45.851 Suicidal ideations; K74.60 Unspecified cirrhosis of liver; B19.20 Unspecified viral hepatitis C without hepatic coma; I10 Essential (primary) hypertension; F60.2 Antisocial personality disorder; F90.9 Attention-deficit hyperactivity disorder, unspecified type; F17.200 Nicotine dependence, unspecified, uncomplicated; F10.10 Alcohol abuse, uncomplicated; Z79.899 Other long term (current) drug therapy; Z88.0 Allergy status to penicillin; Z85.828 Personal history of other malignant neoplasm of skin; Z90.89 Acquired absence of other organs; Z82.49 Family history of ischemic heart disease and other diseases of the circulatory system
CPT/HCPCS: 80053; 80061; 80306; 82075; 82140; 82248; 83036; 84443; 85025; 99285

== ENCOUNTER 2018-02-06 21:05 | Emergency (ER) | payer MEDICARE, OTHER ==
[2018-02-06] MEDS ORDERED: ONDANSETRON 4 MG/2 ML VIAL IVP STA (22:21)
[2018-02-06] MEDS ORDERED: SODIUM CHLORIDE 0.9% 1,000 ML IV STA ×2 (22:21)
--- NOTE | 2018-02-06 22:24 | ED ---
Nausea/Vomiting/Diarrhea HPI - General Chief complaint: Nausea/Vomiting/Diarrhea Stated complaint: Ca pt. hallucinations Time Seen by Provider: 02/06/18 22:12 Source: patient, RN notes reviewed Mode of arrival: ambulatory Limitations: altered mental status - History of Present Illness Initial comments: This is a 62-year-old male with a history of hepatocellular cancer status post radiation therapy recently who does admit to drinking beer today and over last several days. He complains of nausea vomiting mild epigastric pain. He denies any diarrhea. He denies any blood in his vomit or dark tarry stools. No current suicidal thoughts or ideation MD complaint: nausea, vomiting, other - Related Data Home Medications Medication Instructions Recorded Confirmed Lisinopril 40 mg PO DAILY 05/14/16 02/06/18 Paliperidone IM [Invega Sustenna] 234 mg IM Q15D 05/14/16 02/06/18 Tamsulosin [Flomax] 0.4 mg PO DAILY 05/14/16 02/06/18 amLODIPine [Norvasc] 10 mg PO DAILY 05/14/16 02/06/18 Cholecalciferol (Vitamin D3) 10,000 unit PO DAILY 01/02/18 02/06/18 [Vitamin D3] Folic Acid 2 mg PO DAILY 01/02/18 02/06/18 Lactulose 30 gm PO DAILY 01/02/18 02/06/18 Multivitamins, Thera [Multivitamin 1 tab PO DAILY 01/02/18 02/06/18 (formulary)] traMADol HCL [Ultram] 50 mg PO Q6HR PRN 01/02/18 02/06/18 Benztropine Mesylate [Cogentin] 2 mg PO DAILY 02/06/18 02/06/18 Gabapentin [Neurontin] 300 mg PO TID 02/06/18 02/06/18 Methocarbamol [Robaxin] 500 mg PO TID 02/06/18 02/06/18 Omeprazole [PriLOSEC] 20 mg PO AC-BRKFST 02/06/18 02/06/18 fluvoxaMINE MALEATE [Fluvoxamine 100 mg PO BID 02/06/18 02/06/18 Maleate] traZODone HCL [Desyrel] 100 mg PO DAILY 02/06/18 02/06/18 Allergies Allergy/AdvReac Type Severity Reaction Status Date / Time Penicillins Allergy Severe Rash/Hives Verified 01/04/18 04:40 Review of Systems ROS Statement: Those systems with pertinent positive or pertinent negative responses have been documented in the HPI. ROS Other: All systems not noted in ROS Statement are negative. Past Medical History Past Medical History: Cancer, Hypertension, Liver Disease, Seizure Disorder Additional Past Medical History / Comment(s): opiate overdose and subdural hematoma. Other HX: Etoh addiction, cirrhosis, hepatic encephalopathy, HEAD INJURIES , Hepatitis C, 1-5-15 RIMMA BIMALLEOLAR FX D/T FALL, HAD SKIN CA ON NOSE , liver CA History of Any Multi-Drug Resistant Organisms: None Reported Past Surgical History: Orthopedic Surgery, Tonsillectomy Additional Past Surgical History / Comment(s): Open left shoulder rotator cuff surgery, SKIN CA NOSE HAD SKIN GRAFT DONE, colonoscopy and EGD. Past Anesthesia/Blood Transfusion Reactions: No Reported Reaction Additional Past Anesthesia/Blood Transfusion Reaction / Comment(s): Pt has never recieved blood. Past Psychological History: ADD/ADHD, Anxiety, Bipolar, Depression Smoking Status: Current every day smoker Past Alcohol Use History: Abuse Past Drug Use History: None Reported - Past Family History Mother Family Medical History: Hypertension Father Family Medical History: Musculoskeletal Disorder General Exam - General Exam Comments Initial Comments: This is a well-developed well-nourished awake alert oriented 3 male Limitations: altered mental status General appearance: alert, in no apparent distress Head exam: Present: atraumatic, normocephalic, normal inspection Eye exam: Present: normal appearance, PERRL, EOMI. Absent: scleral icterus, conjunctival injection, periorbital swelling ENT exam: Present: mucous membranes dry Neck exam: Present: normal inspection. Absent: tenderness, meningismus, lymphadenopathy Respiratory exam: Present: normal lung sounds bilaterally. Absent: respiratory distress, wheezes, rales, rhonchi, stridor Cardiovascular Exam: Present: regular rate, normal rhythm, normal heart sounds. Absent: systolic murmur, diastolic murmur, rubs, gallop, clicks GI/Abdominal exam: Present: soft, normal bowel sounds. Absent: distended, tenderness, guarding, rebound, rigid Extremities exam: Present: normal inspection, full ROM, normal capillary refill. Absent: tenderness, pedal edema, joint swelling, calf tenderness Back exam: Present: normal inspection Neurological exam: Present: alert, oriented X3, CN II-XII intact Psychiatric exam: Present: normal affect, normal mood Skin exam: Present: warm, dry, intact, normal color. Absent: rash Course Vital Signs 02/06/18 02/07/18 02/07/18 21:11 00:43 01:54 Temperature 97.7 F 98.7 F Pulse Rate 94 72 69 Respiratory 16 18 18 Rate Blood Pressure 119/74 107/55 103/59 O2 Sat by Pulse 96 100 96 Oximetry Medical Decision Making - Medical Decision Making The patient is resting comfortably throughout the morning he is determined to be sober he'll be discharged - Lab Data Result diagrams: 02/06/18 22:19 02/06/18 22:19 Lab Results 02/06/18 02/06/18 02/06/18 Range/Units 22:19 22:19 22:19 WBC (3.8-10.6) k/uL RBC (4.30-5.90) m/uL Hgb (13.0-17.5) gm/dL Hct (39.0-53.0) % MCV (80.0-100.0) fL MCH (25.0-35.0) pg MCHC (31.0-37.0) g/dL RDW (11.5-15.5) % Plt Count (150-450) k/uL Neutrophils % % Lymphocytes % % Monocytes % % Eosinophils % % Basophils % % Neutrophils # (1.3-7.7) k/uL Lymphocytes # (1.0-4.8) k/uL Monocytes # (0-1.0) k/uL Eosinophils # (0-0.7) k/uL Basophils # (0-0.2) k/uL Sodium 145 (137-145) mmol/L Potassium 4.1 (3.5-5.1) mmol/L Chloride 105 (98-107) mmol/L Carbon Dioxide 22 (22-30) mmol/L Anion Gap 18 mmol/L BUN 16 (9-20) mg/dL Creatinine 0.80 (0.66-1.25) mg/dL Est GFR (CKD-EPI)AfAm >90 (>60 ml/min/1.73 sqM) Est GFR (CKD-EPI)NonAf >90 (>60 ml/min/1.73 sqM) Glucose 89 (74-99) mg/dL Calcium 9.1 (8.4-10.2) mg/dL Magnesium 1.9 (1.6-2.3) mg/dL Total Bilirubin 0.5 (0.2-1.3) mg/dL AST 159 H (17-59) U/L ALT 123 H (21-72) U/L Alkaline Phosphatase 112 (38-126) U/L Ammonia 14 (<30) umol/L Total Creatine Kinase 375 H (55-170) U/L CK-MB (CK-2) 3.4 H* (0.0-2.4) ng/mL CK-MB (CK-2) Rel Index 0.9 Total Protein 7.8 (6.3-8.2) g/dL Albumin 4.3 (3.5-5.0) g/dL Amylase 53 (30-110) U/L Lipase 159 (23-300) U/L Serum Alcohol 181 mg/dL 02/06/18 Range/Units 22:19 WBC 4.5 (3.8-10.6) k/uL RBC 4.71 (4.30-5.90) m/uL Hgb 13.4 (13.0-17.5) gm/dL Hct 39.0 (39.0-53.0) % MCV 82.6 (80.0-100.0) fL MCH 28.5 (25.0-35.0) pg MCHC 34.4 (31.0-37.0) g/dL RDW 14.8 (11.5-15.5) % Plt Count 105 L (150-450) k/uL Neutrophils % 82 % Lymphocytes % 6 % Monocytes % 5 % Eosinophils % 4 % Basophils % 0 % Neutrophils # 3.7 (1.3-7.7) k/uL Lymphocytes # 0.3 L (1.0-4.8) k/uL Monocytes # 0.2 (0-1.0) k/uL Eosinophils # 0.2 (0-0.7) k/uL Basophils # 0.0 (0-0.2) k/uL Sodium (137-145) mmol/L Potassium (3.5-5.1) mmol/L Chloride (98-107) mmol/L Carbon Dioxide (22-30) mmol/L Anion Gap mmol/L BUN (9-20) mg/dL Creatinine (0.66-1.25) mg/dL Est GFR (CKD-EPI)AfAm (>60 ml/min/1.73 sqM) Est GFR (CKD-EPI)NonAf (>60 ml/min/1.73 sqM) Glucose (74-99) mg/dL Calcium (8.4-10.2) mg/dL Magnesium (1.6-2.3) mg/dL Total Bilirubin (0.2-1.3) mg/dL AST (17-59) U/L ALT (21-72) U/L Alkaline Phosphatase (38-126) U/L Ammonia (<30) umol/L Total Creatine Kinase (55-170) U/L CK-MB (CK-2) (0.0-2.4) ng/mL CK-MB (CK-2) Rel Index Total Protein (6.3-8.2) g/dL Albumin (3.5-5.0) g/dL Amylase (30-110) U/L Lipase (23-300) U/L Serum Alcohol mg/dL Disposition Clinical Impression: Acute gastritis, Alcohol intoxication Disposition: HOME SELF-CARE Condition: Good Instructions: Acute Nausea and Vomiting (ED), Alcohol Intoxication (ED), Abuse of Alcohol (ED) Is patient prescribed a controlled substance at d/c from ED?: No Referrals: None,Stated [Primary Care Provider] - 1-2 days
[2018-02-06 22:34] LABS: Basophils % (A) 0 %; Eosinophils # (A) 0.2 k/uL (0-0.7); Eosinophils % (A) 4 %; HGB 13.4 gm/dL (13.0-17.5); Lymphocytes # (A) 0.3 k/uL (1.0-4.8); Lymphocytes % (A) 6 %; MCH 28.5 pg (25.0-35.0); MCHC 34.4 g/dL (31.0-37.0); MCV 82.6 fL (80.0-100.0); Mean Platelet Volume 7.3; Monocytes # (A) 0.2 k/uL (0-1.0); Monocytes % (A) 5 %; Neutrophils # (A) 3.7 k/uL (1.3-7.7); Neutrophils % (A) 82 %; Platelet Count 105 k/uL (150-450); RBC 4.71 m/uL (4.30-5.90); RDW 14.8 % (11.5-15.5); WBC 4.5 k/uL (3.8-10.6)
[2018-02-06 22:47] LABS: ALT 123 U/L (21-72); AST 159 U/L (17-59); Albumin 4.3 g/dL (3.5-5.0); Alkaline Phosphatase 112 U/L (38-126); Amylase 53 U/L (30-110); Anion Gap 18 mmol/L; Blood Urea Nitrogen 16 mg/dL (9-20); Calcium 9.1 mg/dL (8.4-10.2); Carbon Dioxide 22 mmol/L (22-30); Chloride 105 mmol/L (98-107); Glucose 89 mg/dL (74-99); Lipase 159 U/L (23-300); Magnesium 1.9 mg/dL (1.6-2.3); Potassium 4.1 mmol/L (3.5-5.1); Sodium 145 mmol/L (137-145); Total Bilirubin 0.5 mg/dL (0.2-1.3); Total Protein 7.8 g/dL (6.3-8.2)
[2018-02-06 22:54] LABS: Alcohol 181 mg/dL
[2018-02-06 23:20] LABS: Creatine Kinase MB 3.4 ng/mL (0.0-2.4)
[2018-02-07 00:44] VITALS: RESP 18
[2018-02-07 03:23] VITALS: BP 110/59; PULSE 73; TEMP 98.4
== END 2018-02-07 03:23 | disposition home or self-care (01) ==
LOC: EC 21:05
DX: K29.00 Acute gastritis without bleeding (principal); F10.129 Alcohol abuse with intoxication, unspecified; R41.82 Altered mental status, unspecified; I10 Essential (primary) hypertension; K70.30 Alcoholic cirrhosis of liver without ascites; G40.909 Epilepsy, unspecified, not intractable, without status epilepticus; F31.9 Bipolar disorder, unspecified; F41.9 Anxiety disorder, unspecified; F17.200 Nicotine dependence, unspecified, uncomplicated; Z79.899 Other long term (current) drug therapy; Z88.0 Allergy status to penicillin; Z85.05 Personal history of malignant neoplasm of liver; Z92.3 Personal history of irradiation; Z85.828 Personal history of other malignant neoplasm of skin; Z98.890 Other specified postprocedural states
CPT/HCPCS: 36415; 80053; 82140; 82150; 82550; 82553; 83690; 83735; 85025; 80320; 99284; 96374; 96361 ×5; J2405